=== PATIENT | female | born 1980 | race Caucasian/White ===

== ENCOUNTER → 2016-04-21 | Outpatient (CLI) | payer OTHER | END | disposition home or self-care (01) | LOC: RAD.S 10:26 | DX: M54.5 Low back pain (principal); D25.9 Leiomyoma of uterus, unspecified; R93.8 Abnormal findings on diagnostic imaging of other specified body structures; R11.0 Nausea; R35.0 Frequency of micturition; Z80.41 Family history of malignant neoplasm of ovary ==